=== PATIENT | male | born 1965 | race Caucasian/White ===

== ENCOUNTER 2020-07-29 14:05 | Inpatient (IN) | payer OTHER ==
[2020-07-29 17:50] VITALS: BMI 48.1
[2020-07-29] MEDS ORDERED: BISMUTH SUBSALICYLATE 524 MG/30 ML UD PO PRN (18:11)
[2020-07-29] MEDS ORDERED: chlordiazePOXIDE HCL 25 MG CAPSULE PO PRN (18:11)
[2020-07-29] MEDS ORDERED: METHOCARBAMOL 500 MG TABLET PO PRN (18:11)
[2020-07-29] MEDS ORDERED: ONDANSETRON *ODT* 4 MG TABLET SL PRN (18:11)
[2020-07-29] MEDS ORDERED: MAG HYDROX/AL HYDROX/SIMETH 30 ML UNIT-DOSE CUP PO PRN (18:11)
[2020-07-29] MEDS ORDERED: MENTHOL/PHENOL 1 EACH UD MM PRN (18:11)
[2020-07-29] MEDS ORDERED: MAGNESIUM CITRATE 300 ML BOTTLE PO PRN (18:11)
[2020-07-29] MEDS ORDERED: ACETAMINOPHEN 325 MG TABLET (FP) PO PRN ×2 (18:11)
[2020-07-29] MEDS ORDERED: MAGNESIUM HYDROX 2400MG/30ML ORAL SUSPENSION 30 ML CUP PO PRN (18:11)
[2020-07-29] MEDS: MELATONIN 5 MG TABLETS PO SCH (23:13)
[2020-07-29] MEDS: chlordiazePOXIDE HCL 25 MG CAPSULE PO SCH (23:13)
[2020-07-29] MEDS: THIAMINE HCL 100 MG TABLET (FP) PO SCH (23:13)
[2020-07-29] MEDS: hydrOXYzine PAMOATE 25 MG CAPSULE (FP) PO SCH (23:14)
[2020-07-30] MEDS: chlordiazePOXIDE HCL 25 MG CAPSULE PO SCH ×2 (05:32→10:39)
[2020-07-30] MEDS: hydrOXYzine PAMOATE 25 MG CAPSULE (FP) PO SCH ×5 (05:33→22:33)
[2020-07-30] MEDS: PRENATAL VITAMINS W/ FOLIC ACID TABLET (FP) PO SCH (10:39)
[2020-07-30 10:51] LABS: HEMATOCRIT 37.7 % (35.4-49); HEMOGLOBIN 12.6 GM/dL (11.7-16.9); MCH 29.8 pg (25.7-33.7); MCHC 33.6 g/dl (32.0-35.9); MEAN CELL VOLUME 88.8 fl (80-96); MEAN PLT VOLUME 7.9 fl (7.5-11.1); PLATELET COUNT 160 K/MM3 (134-434); RBC 4.24 M/mm3 (4.00-5.60); RDW 14.5 % (11.9-15.9); WHITE BLOOD COUNT 3.2 K/mm3 (4.0-10.0)
[2020-07-30 11:07] LABS: POTASSIUM 4.3 mmol/L (3.5-5.1)
[2020-07-30 11:09] LABS: ALBUMIN 3.2 g/dl (3.4-5.0); CALCIUM 8.8 mg/dL (8.5-10.1)
[2020-07-30 11:13] LABS: CREATININE 0.7 mg/dL (0.55-1.3)
[2020-07-30 11:14] LABS: BILIRUBIN,TOTAL 0.8 mg/dL (0.2-1); TOT PROT 6.8 g/dl (6.4-8.2)
[2020-07-30] MEDS ORDERED: LORazepam 1 MG TABLET PO PRN (12:33)
[2020-07-30] MEDS: LORazepam 2 MG TABLET PO SCH ×2 (18:15→22:33)
[2020-07-30] MEDS: THIAMINE HCL 100 MG TABLET (FP) PO SCH (22:33)
[2020-07-30] MEDS: MELATONIN 5 MG TABLETS PO SCH (22:33)
[2020-07-31] MEDS ORDERED: chlordiazePOXIDE HCL 25 MG CAPSULE PO SCH (05:00)
[2020-07-31] MEDS: hydrOXYzine PAMOATE 25 MG CAPSULE (FP) PO SCH ×5 (06:08→22:37)
[2020-07-31] MEDS: LORazepam 2 MG TABLET PO SCH ×4 (06:08→22:37)
[2020-07-31] MEDS: PRENATAL VITAMINS W/ FOLIC ACID TABLET (FP) PO SCH (10:14)
[2020-07-31] MEDS: THIAMINE HCL 100 MG TABLET (FP) PO SCH (22:37)
[2020-07-31] MEDS: MELATONIN 5 MG TABLETS PO SCH (22:37)
[2020-08-01] MEDS ORDERED: chlordiazePOXIDE HCL 10 MG CAPSULE PO PRN
[2020-08-01] MEDS ORDERED: chlordiazePOXIDE HCL 10 MG CAPSULE PO SCH (05:00)
[2020-08-01] MEDS: hydrOXYzine PAMOATE 25 MG CAPSULE (FP) PO SCH ×5 (06:15→22:09)
[2020-08-01] MEDS: LORazepam 1 MG TABLET PO SCH ×4 (06:17→22:10)
[2020-08-01 09:51] LABS: POTASSIUM 3.6 mmol/L (3.5-5.1)
[2020-08-01 09:55] LABS: ALBUMIN 2.9 g/dl (3.4-5.0); BLOOD UREA NITROGEN 12.6 mg/dL (7-18); CALCIUM 8.6 mg/dL (8.5-10.1)
[2020-08-01 09:58] LABS: CREATININE 0.8 mg/dL (0.55-1.3)
[2020-08-01 10:00] LABS: BILIRUBIN,TOTAL 0.8 mg/dL (0.2-1); TOT PROT 6.4 g/dl (6.4-8.2)
[2020-08-01] MEDS: PRENATAL VITAMINS W/ FOLIC ACID TABLET (FP) PO SCH (10:26)
[2020-08-01] MEDS: THIAMINE HCL 100 MG TABLET (FP) PO SCH (22:09)
[2020-08-01] MEDS: MELATONIN 5 MG TABLETS PO SCH (22:09)
[2020-08-02] MEDS ORDERED: LORazepam 0.5 MG TABLET PO PRN
[2020-08-02] MEDS ORDERED: chlordiazePOXIDE HCL 10 MG CAPSULE PO SCH (05:00)
[2020-08-02] MEDS: hydrOXYzine PAMOATE 25 MG CAPSULE (FP) PO SCH ×5 (06:06→22:30)
[2020-08-02] MEDS: LORazepam 0.5 MG TABLET PO SCH ×4 (06:06→22:30)
[2020-08-02] MEDS: PRENATAL VITAMINS W/ FOLIC ACID TABLET (FP) PO SCH (10:30)
[2020-08-02] MEDS: THIAMINE HCL 100 MG TABLET (FP) PO SCH (22:30)
[2020-08-02] MEDS: MELATONIN 5 MG TABLETS PO SCH (22:30)
[2020-08-02] MEDS: IBUPROFEN 400 MG TABLET (FP) PO PRN (22:31)
[2020-08-03] MEDS ORDERED: LORazepam 0.5 MG TABLET PO ONE (05:00)
[2020-08-03] MEDS ORDERED: chlordiazePOXIDE HCL 10 MG CAPSULE PO ONE (05:00)
[2020-08-03] MEDS: hydrOXYzine PAMOATE 25 MG CAPSULE (FP) PO SCH ×2 (06:13→10:12)
[2020-08-03] MEDS: IBUPROFEN 400 MG TABLET (FP) PO PRN (06:14)
[2020-08-03 06:37] VITALS: TEMP 96.9
[2020-08-03 09:32] VITALS: BP 131/72; PULSE 77
[2020-08-03] MEDS: PRENATAL VITAMINS W/ FOLIC ACID TABLET (FP) PO SCH (10:12)
== END 2020-08-03 12:31 | disposition other institution (70) | DRG 775 ==
LOC: YASAS 14:05 → Y6N 20:02
PROVIDERS: ADMIT Allergy & Immunology; ATTEND Allergy & Immunology
PROC: HZ2ZZZZ Detoxification Services for Substance Abuse Treatment (ICD-10-PCS; principal; 2020-07-29)
DX: F10.230 Alcohol dependence with withdrawal, uncomplicated (principal); M17.0 Bilateral primary osteoarthritis of knee; M19.072 Primary osteoarthritis, left ankle and foot; M19.071 Primary osteoarthritis, right ankle and foot; M10.9 Gout, unspecified; R94.5 Abnormal results of liver function studies; E66.01 Morbid (severe) obesity due to excess calories; Z68.42 Body mass index [BMI] 45.0-49.9, adult; Z98.84 Bariatric surgery status; Z99.89 Dependence on other enabling machines and devices
CPT/HCPCS: 36415; 80053; 85027; 86780; 93005; 93010; C9803; U0003

== ENCOUNTER 2020-08-03 12:40 | Inpatient (IN) | payer OTHER ==
[2020-08-03] MEDS ORDERED: LOPERAMIDE HCL 2 MG CAPSULE PO PRN (13:55)
[2020-08-03] MEDS ORDERED: MAGNESIUM CITRATE 300 ML BOTTLE PO PRN (13:55)
[2020-08-03] MEDS ORDERED: MAGNESIUM HYDROX 2400MG/30ML ORAL SUSPENSION 30 ML CUP PO PRN (13:55)
[2020-08-03] MEDS ORDERED: MENTHOL/PHENOL 1 EACH UD MM PRN (13:55)
[2020-08-03] MEDS ORDERED: guaiFENesin 200 MG/10 ML 10 ML UNIT-DOSE CUPS PO PRN (13:55)
[2020-08-03] MEDS ORDERED: P-EPHED 60MG/TRIPROLIDI 2.5MG TABLET PO PRN (13:55)
[2020-08-03] MEDS ORDERED: MAG HYDROX/AL HYDROX/SIMETH 30 ML UNIT-DOSE CUP PO PRN (13:55)
[2020-08-03] MEDS ORDERED: NICOTINE POLACRILEX 2 MG GUM BUC PRN (13:55)
[2020-08-03] MEDS: THIAMINE HCL 100 MG TABLET (FP) PO SCH (21:31)
[2020-08-03] MEDS: MELATONIN 5 MG TABLETS PO SCH (21:31)
[2020-08-03] MEDS: hydrOXYzine PAMOATE 25 MG CAPSULE (FP) PO PRN (21:31)
[2020-08-03] MEDS: IBUPROFEN 400 MG TABLET (FP) PO PRN (21:32)
[2020-08-04] MEDS: IBUPROFEN 400 MG TABLET (FP) PO PRN ×2 (06:22→21:12)
[2020-08-04] MEDS: PRENATAL VITAMINS W/ FOLIC ACID TABLET (FP) PO SCH (10:29)
[2020-08-04] MEDS: NICOTINE 7 MG/24 HOURS TOPICAL PATCH TD SCH (10:29)
[2020-08-04] MEDS: ACETAMINOPHEN 325 MG TABLET (FP) PO PRN (10:30)
[2020-08-04] MEDS: THIAMINE HCL 100 MG TABLET (FP) PO SCH (21:12)
[2020-08-04] MEDS: MELATONIN 5 MG TABLETS PO SCH (21:12)
[2020-08-05] MEDS: IBUPROFEN 400 MG TABLET (FP) PO PRN ×2 (06:59→21:13)
[2020-08-05] MEDS: PRENATAL VITAMINS W/ FOLIC ACID TABLET (FP) PO SCH (09:39)
[2020-08-05] MEDS: NICOTINE 7 MG/24 HOURS TOPICAL PATCH TD SCH (09:39)
[2020-08-05] MEDS: hydrOXYzine PAMOATE 25 MG CAPSULE (FP) PO PRN ×2 (09:39→21:13)
[2020-08-05] MEDS: ACETAMINOPHEN 325 MG TABLET (FP) PO PRN (09:40)
[2020-08-05] MEDS: MELATONIN 5 MG TABLETS PO SCH (21:13)
[2020-08-05] MEDS: THIAMINE HCL 100 MG TABLET (FP) PO SCH (21:13)
[2020-08-06] MEDS: IBUPROFEN 400 MG TABLET (FP) PO PRN ×2 (06:45→21:07)
[2020-08-06] MEDS: PRENATAL VITAMINS W/ FOLIC ACID TABLET (FP) PO SCH (09:26)
[2020-08-06] MEDS: ACETAMINOPHEN 325 MG TABLET (FP) PO PRN (09:27)
[2020-08-06] MEDS: hydrOXYzine PAMOATE 25 MG CAPSULE (FP) PO PRN ×2 (09:27→21:07)
[2020-08-06] MEDS: NICOTINE 7 MG/24 HOURS TOPICAL PATCH TD SCH (09:28)
[2020-08-06] MEDS: MELATONIN 5 MG TABLETS PO SCH (21:06)
[2020-08-06] MEDS: THIAMINE HCL 100 MG TABLET (FP) PO SCH (21:07)
[2020-08-07] MEDS: IBUPROFEN 400 MG TABLET (FP) PO PRN ×2 (06:08→21:21)
[2020-08-07] MEDS ORDERED: MASKS NR ONE (09:44)
[2020-08-07] MEDS: PRENATAL VITAMINS W/ FOLIC ACID TABLET (FP) PO SCH (10:33)
[2020-08-07] MEDS: NICOTINE 7 MG/24 HOURS TOPICAL PATCH TD SCH (10:33)
[2020-08-07] MEDS: ACETAMINOPHEN 325 MG TABLET (FP) PO PRN (10:34)
[2020-08-07] MEDS: THIAMINE HCL 100 MG TABLET (FP) PO SCH (21:18)
[2020-08-07] MEDS: MELATONIN 5 MG TABLETS PO SCH (21:19)
[2020-08-07] MEDS: hydrOXYzine PAMOATE 25 MG CAPSULE (FP) PO PRN (21:20)
[2020-08-08] MEDS: IBUPROFEN 400 MG TABLET (FP) PO PRN ×2 (06:20→21:45)
[2020-08-08] MEDS: NICOTINE 7 MG/24 HOURS TOPICAL PATCH TD SCH (10:04)
[2020-08-08] MEDS: ACETAMINOPHEN 325 MG TABLET (FP) PO PRN (10:12)
[2020-08-08] MEDS: PRENATAL VITAMINS W/ FOLIC ACID TABLET (FP) PO SCH (12:41)
[2020-08-08] MEDS: MELATONIN 5 MG TABLETS PO SCH (21:45)
[2020-08-08] MEDS: THIAMINE HCL 100 MG TABLET (FP) PO SCH (21:45)
[2020-08-09] MEDS: IBUPROFEN 400 MG TABLET (FP) PO PRN ×2 (06:38→21:36)
[2020-08-09] MEDS: PRENATAL VITAMINS W/ FOLIC ACID TABLET (FP) PO SCH (09:28)
[2020-08-09] MEDS: hydrOXYzine PAMOATE 25 MG CAPSULE (FP) PO PRN ×2 (09:28→21:35)
[2020-08-09] MEDS: ACETAMINOPHEN 325 MG TABLET (FP) PO PRN ×2 (09:28→18:12)
[2020-08-09] MEDS: NICOTINE 7 MG/24 HOURS TOPICAL PATCH TD SCH (09:29)
[2020-08-09] MEDS ORDERED: FUROSEMIDE 40 MG TABLET (FP) PO ONE (15:26)
[2020-08-09] MEDS: THIAMINE HCL 100 MG TABLET (FP) PO SCH (21:36)
[2020-08-09] MEDS: MELATONIN 5 MG TABLETS PO SCH (21:38)
[2020-08-10] MEDS: IBUPROFEN 400 MG TABLET (FP) PO PRN ×2 (07:29→14:47)
[2020-08-10] MEDS: NICOTINE 7 MG/24 HOURS TOPICAL PATCH TD SCH (09:26)
[2020-08-10] MEDS: ACETAMINOPHEN 325 MG TABLET (FP) PO PRN ×2 (09:26→21:11)
[2020-08-10] MEDS: PRENATAL VITAMINS W/ FOLIC ACID TABLET (FP) PO SCH (09:27)
[2020-08-10] MEDS: hydrOXYzine PAMOATE 25 MG CAPSULE (FP) PO PRN ×2 (09:27→21:10)
[2020-08-10] MEDS: FUROSEMIDE 40 MG TABLET (FP) PO SCH (09:54)
[2020-08-10] MEDS: THIAMINE HCL 100 MG TABLET (FP) PO SCH (21:10)
[2020-08-10] MEDS: MELATONIN 5 MG TABLETS PO SCH (21:10)
[2020-08-11] MEDS: IBUPROFEN 400 MG TABLET (FP) PO PRN ×2 (06:52→21:58)
[2020-08-11] MEDS: FUROSEMIDE 40 MG TABLET (FP) PO SCH (10:44)
[2020-08-11] MEDS: NICOTINE 7 MG/24 HOURS TOPICAL PATCH TD SCH (10:44)
[2020-08-11] MEDS: hydrOXYzine PAMOATE 25 MG CAPSULE (FP) PO PRN ×2 (10:44→21:58)
[2020-08-11] MEDS: PRENATAL VITAMINS W/ FOLIC ACID TABLET (FP) PO SCH (10:44)
[2020-08-11] MEDS: ACETAMINOPHEN 325 MG TABLET (FP) PO PRN ×2 (10:47→17:40)
[2020-08-11] MEDS: MELATONIN 5 MG TABLETS PO SCH (21:57)
[2020-08-11] MEDS: THIAMINE HCL 100 MG TABLET (FP) PO SCH (21:58)
[2020-08-11] MEDS: METHYL SALICYLATE/MENTHOL OINT 30 GM TUBE TP SCH (22:07)
[2020-08-12] MEDS: PRENATAL VITAMINS W/ FOLIC ACID TABLET (FP) PO SCH (09:28)
[2020-08-12] MEDS: hydrOXYzine PAMOATE 25 MG CAPSULE (FP) PO PRN ×2 (09:32→21:43)
[2020-08-12] MEDS: IBUPROFEN 400 MG TABLET (FP) PO PRN ×2 (09:32→21:43)
[2020-08-12] MEDS: NICOTINE 7 MG/24 HOURS TOPICAL PATCH TD SCH (09:33)
[2020-08-12] MEDS: METHYL SALICYLATE/MENTHOL OINT 30 GM TUBE TP SCH ×2 (09:33→21:46)
[2020-08-12] MEDS ORDERED: COLCHICINE 0.6 MG CAP PO ONE (11:14)
[2020-08-12] MEDS: ACETAMINOPHEN 325 MG TABLET (FP) PO PRN (16:12)
[2020-08-12 16:42] LABS: EPI CELLS 6 /uL (0-25.1); HYALINE CASTS 0 /uL (0-3.1); PH,URINE 6.5 (5.0-8.0); URINE APPEARANCE CLEAR; URINE BACTERIA 965 /uL (0-1359); URINE BILIRUBIN NEGATIVE (NEGATIVE); URINE COLOR YELLOW; URINE GLUCOSE (UA) NEGATIVE (NEGATIVE); URINE KETONE NEGATIVE (NEGATIVE); URINE LEUK ESTERASE NEGATIVE (NEGATIVE); URINE NITRITE NEGATIVE (NEGATIVE); URINE PROTEIN NEGATIVE (NEGATIVE); URINE RBC 34 /uL (0-23.9); URINE UROBILINOGEN 0.2 mg/dL (0.2-1.0); URINE WBC 3 /uL (0-25.8)
[2020-08-12] MEDS: THIAMINE HCL 100 MG TABLET (FP) PO SCH (21:43)
[2020-08-12] MEDS: MELATONIN 5 MG TABLETS PO SCH (21:44)
[2020-08-13] MEDS: IBUPROFEN 400 MG TABLET (FP) PO PRN ×2 (07:20→21:50)
[2020-08-13] MEDS: COLCHICINE 0.6 MG CAP PO SCH (10:58)
[2020-08-13] MEDS: NICOTINE 7 MG/24 HOURS TOPICAL PATCH TD SCH (10:59)
[2020-08-13] MEDS: PRENATAL VITAMINS W/ FOLIC ACID TABLET (FP) PO SCH (10:59)
[2020-08-13] MEDS: METHYL SALICYLATE/MENTHOL OINT 30 GM TUBE TP SCH ×2 (11:00→21:49)
[2020-08-13] MEDS: ACETAMINOPHEN 325 MG TABLET (FP) PO PRN (14:56)
[2020-08-13] MEDS: MELATONIN 5 MG TABLETS PO SCH (21:49)
[2020-08-13] MEDS: THIAMINE HCL 100 MG TABLET (FP) PO SCH (21:50)
[2020-08-14] MEDS: PRENATAL VITAMINS W/ FOLIC ACID TABLET (FP) PO SCH (10:40)
[2020-08-14] MEDS: IBUPROFEN 400 MG TABLET (FP) PO PRN ×3 (10:41→21:54)
[2020-08-14] MEDS: hydrOXYzine PAMOATE 25 MG CAPSULE (FP) PO PRN ×2 (10:41→21:53)
[2020-08-14] MEDS: NICOTINE 7 MG/24 HOURS TOPICAL PATCH TD SCH (10:42)
[2020-08-14] MEDS: COLCHICINE 0.6 MG CAP PO SCH (10:42)
[2020-08-14] MEDS: METHYL SALICYLATE/MENTHOL OINT 30 GM TUBE TP SCH ×2 (10:45→22:04)
[2020-08-14] MEDS: MELATONIN 5 MG TABLETS PO SCH (21:53)
[2020-08-14] MEDS: THIAMINE HCL 100 MG TABLET (FP) PO SCH (21:53)
[2020-08-15] MEDS: NICOTINE 7 MG/24 HOURS TOPICAL PATCH TD SCH (10:01)
[2020-08-15] MEDS: COLCHICINE 0.6 MG CAP PO SCH (10:01)
[2020-08-15] MEDS: METHYL SALICYLATE/MENTHOL OINT 30 GM TUBE TP SCH ×2 (10:01→21:45)
[2020-08-15] MEDS: PRENATAL VITAMINS W/ FOLIC ACID TABLET (FP) PO SCH (10:02)
[2020-08-15] MEDS: ACETAMINOPHEN 325 MG TABLET (FP) PO PRN ×2 (10:02→21:38)
[2020-08-15] MEDS: IBUPROFEN 400 MG TABLET (FP) PO PRN (17:18)
[2020-08-15] MEDS: hydrOXYzine PAMOATE 25 MG CAPSULE (FP) PO PRN (21:38)
[2020-08-15] MEDS: THIAMINE HCL 100 MG TABLET (FP) PO SCH (21:38)
[2020-08-15] MEDS: MELATONIN 5 MG TABLETS PO SCH (21:38)
[2020-08-16] MEDS: METHYL SALICYLATE/MENTHOL OINT 30 GM TUBE TP SCH ×2 (10:07→21:03)
[2020-08-16] MEDS: NICOTINE 7 MG/24 HOURS TOPICAL PATCH TD SCH (10:08)
[2020-08-16] MEDS: COLCHICINE 0.6 MG CAP PO SCH (10:08)
[2020-08-16] MEDS: PRENATAL VITAMINS W/ FOLIC ACID TABLET (FP) PO SCH (10:08)
[2020-08-16] MEDS: IBUPROFEN 400 MG TABLET (FP) PO PRN ×2 (10:09→21:04)
[2020-08-16] MEDS: THIAMINE HCL 100 MG TABLET (FP) PO SCH (21:03)
[2020-08-16] MEDS: hydrOXYzine PAMOATE 25 MG CAPSULE (FP) PO PRN (21:03)
[2020-08-16] MEDS: MELATONIN 5 MG TABLETS PO SCH (21:03)
[2020-08-17] MEDS: IBUPROFEN 400 MG TABLET (FP) PO PRN ×2 (10:17→21:43)
[2020-08-17] MEDS: PRENATAL VITAMINS W/ FOLIC ACID TABLET (FP) PO SCH (10:17)
[2020-08-17] MEDS: NICOTINE 7 MG/24 HOURS TOPICAL PATCH TD SCH (10:19)
[2020-08-17] MEDS: COLCHICINE 0.6 MG CAP PO SCH ×2 (10:20→21:43)
[2020-08-17] MEDS: METHYL SALICYLATE/MENTHOL OINT 30 GM TUBE TP SCH ×2 (10:21→21:43)
[2020-08-17] MEDS ORDERED: PT OWN MED DRAWER 7, Y5N ONE (20:06)
[2020-08-17] MEDS: THIAMINE HCL 100 MG TABLET (FP) PO SCH (21:43)
[2020-08-17] MEDS: hydrOXYzine PAMOATE 25 MG CAPSULE (FP) PO PRN (21:44)
[2020-08-17] MEDS: MELATONIN 5 MG TABLETS PO SCH (21:44)
[2020-08-18] MEDS: COLCHICINE 0.6 MG CAP PO SCH ×2 (10:32→21:19)
[2020-08-18] MEDS: IBUPROFEN 400 MG TABLET (FP) PO PRN ×2 (10:32→21:19)
[2020-08-18] MEDS: PRENATAL VITAMINS W/ FOLIC ACID TABLET (FP) PO SCH (10:32)
[2020-08-18] MEDS: hydrOXYzine PAMOATE 25 MG CAPSULE (FP) PO PRN (10:33)
[2020-08-18] MEDS: NICOTINE 7 MG/24 HOURS TOPICAL PATCH TD SCH (10:33)
[2020-08-18] MEDS: METHYL SALICYLATE/MENTHOL OINT 30 GM TUBE TP SCH ×2 (10:33→21:19)
[2020-08-18] MEDS ORDERED: PT OWN MED DRAWER 7, Y5N ONE (20:51)
[2020-08-18] MEDS: THIAMINE HCL 100 MG TABLET (FP) PO SCH (21:19)
[2020-08-18] MEDS: MELATONIN 5 MG TABLETS PO SCH (21:20)
[2020-08-19] MEDS: PRENATAL VITAMINS W/ FOLIC ACID TABLET (FP) PO SCH (10:46)
[2020-08-19] MEDS: hydrOXYzine PAMOATE 25 MG CAPSULE (FP) PO PRN ×2 (10:47→21:41)
[2020-08-19] MEDS: COLCHICINE 0.6 MG CAP PO SCH ×2 (10:47→21:43)
[2020-08-19] MEDS: IBUPROFEN 400 MG TABLET (FP) PO PRN ×2 (10:47→21:43)
[2020-08-19] MEDS: METHYL SALICYLATE/MENTHOL OINT 30 GM TUBE TP SCH ×2 (10:48→21:43)
[2020-08-19] MEDS: NICOTINE 7 MG/24 HOURS TOPICAL PATCH TD SCH (10:48)
[2020-08-19] MEDS: MELATONIN 5 MG TABLETS PO SCH (21:41)
[2020-08-19] MEDS: THIAMINE HCL 100 MG TABLET (FP) PO SCH (21:41)
[2020-08-20] MEDS: METHYL SALICYLATE/MENTHOL OINT 30 GM TUBE TP SCH ×2 (10:05→21:49)
[2020-08-20] MEDS: PRENATAL VITAMINS W/ FOLIC ACID TABLET (FP) PO SCH (10:05)
[2020-08-20] MEDS: NICOTINE 7 MG/24 HOURS TOPICAL PATCH TD SCH (10:05)
[2020-08-20] MEDS: COLCHICINE 0.6 MG CAP PO SCH ×2 (10:06→21:49)
[2020-08-20] MEDS: IBUPROFEN 400 MG TABLET (FP) PO PRN ×2 (10:06→21:49)
[2020-08-20] MEDS: THIAMINE HCL 100 MG TABLET (FP) PO SCH (21:49)
[2020-08-20] MEDS: hydrOXYzine PAMOATE 25 MG CAPSULE (FP) PO PRN (21:49)
[2020-08-20] MEDS: MELATONIN 5 MG TABLETS PO SCH (21:49)
[2020-08-21] MEDS: PRENATAL VITAMINS W/ FOLIC ACID TABLET (FP) PO SCH (09:58)
[2020-08-21] MEDS: hydrOXYzine PAMOATE 25 MG CAPSULE (FP) PO PRN ×2 (09:58→21:12)
[2020-08-21] MEDS: METHYL SALICYLATE/MENTHOL OINT 30 GM TUBE TP SCH ×2 (09:59→21:13)
[2020-08-21] MEDS: NICOTINE 7 MG/24 HOURS TOPICAL PATCH TD SCH (09:59)
[2020-08-21] MEDS: IBUPROFEN 400 MG TABLET (FP) PO PRN ×2 (10:00→21:12)
[2020-08-21] MEDS: MELATONIN 5 MG TABLETS PO SCH (21:13)
[2020-08-21] MEDS: COLCHICINE 0.6 MG TAB PO SCH (21:13)
[2020-08-21] MEDS: THIAMINE HCL 100 MG TABLET (FP) PO SCH (22:13)
[2020-08-22] MEDS: PRENATAL VITAMINS W/ FOLIC ACID TABLET (FP) PO SCH (09:55)
[2020-08-22] MEDS: hydrOXYzine PAMOATE 25 MG CAPSULE (FP) PO PRN ×2 (09:55→22:00)
[2020-08-22] MEDS: IBUPROFEN 400 MG TABLET (FP) PO PRN ×2 (09:55→22:00)
[2020-08-22] MEDS: COLCHICINE 0.6 MG TAB PO SCH ×2 (09:55→22:00)
[2020-08-22] MEDS: NICOTINE 7 MG/24 HOURS TOPICAL PATCH TD SCH (10:30)
[2020-08-22] MEDS: METHYL SALICYLATE/MENTHOL OINT 30 GM TUBE TP SCH ×2 (10:30→22:14)
[2020-08-22] MEDS: MELATONIN 5 MG TABLETS PO SCH (22:00)
[2020-08-22] MEDS: THIAMINE HCL 100 MG TABLET (FP) PO SCH (22:01)
[2020-08-23] MEDS: PRENATAL VITAMINS W/ FOLIC ACID TABLET (FP) PO SCH (10:10)
[2020-08-23] MEDS: hydrOXYzine PAMOATE 25 MG CAPSULE (FP) PO PRN ×2 (10:10→21:16)
[2020-08-23] MEDS: COLCHICINE 0.6 MG TAB PO SCH ×2 (10:11→21:16)
[2020-08-23] MEDS: IBUPROFEN 400 MG TABLET (FP) PO PRN ×2 (10:12→21:16)
[2020-08-23] MEDS: METHYL SALICYLATE/MENTHOL OINT 30 GM TUBE TP SCH ×2 (10:12→21:17)
[2020-08-23] MEDS: NICOTINE 7 MG/24 HOURS TOPICAL PATCH TD SCH (10:12)
[2020-08-23] MEDS: MELATONIN 5 MG TABLETS PO SCH (21:16)
[2020-08-23] MEDS: THIAMINE HCL 100 MG TABLET (FP) PO SCH (21:16)
[2020-08-24] MEDS: COLCHICINE 0.6 MG TAB PO SCH ×2 (09:58→22:01)
[2020-08-24] MEDS: hydrOXYzine PAMOATE 25 MG CAPSULE (FP) PO PRN ×2 (09:58→22:02)
[2020-08-24] MEDS: IBUPROFEN 400 MG TABLET (FP) PO PRN ×2 (09:58→22:01)
[2020-08-24] MEDS: PRENATAL VITAMINS W/ FOLIC ACID TABLET (FP) PO SCH (09:58)
[2020-08-24] MEDS: NICOTINE 7 MG/24 HOURS TOPICAL PATCH TD SCH (09:59)
[2020-08-24] MEDS: METHYL SALICYLATE/MENTHOL OINT 30 GM TUBE TP SCH ×2 (09:59→22:03)
[2020-08-24] MEDS: MELATONIN 5 MG TABLETS PO SCH (22:01)
[2020-08-24] MEDS: THIAMINE HCL 100 MG TABLET (FP) PO SCH (22:01)
[2020-08-25] MEDS: PRENATAL VITAMINS W/ FOLIC ACID TABLET (FP) PO SCH (10:13)
[2020-08-25] MEDS: IBUPROFEN 400 MG TABLET (FP) PO PRN ×2 (10:13→21:37)
[2020-08-25] MEDS: COLCHICINE 0.6 MG TAB PO SCH ×2 (10:13→21:38)
[2020-08-25] MEDS: hydrOXYzine PAMOATE 25 MG CAPSULE (FP) PO PRN ×2 (10:13→21:38)
[2020-08-25] MEDS: METHYL SALICYLATE/MENTHOL OINT 30 GM TUBE TP SCH ×2 (10:14→21:40)
[2020-08-25] MEDS: NICOTINE 7 MG/24 HOURS TOPICAL PATCH TD SCH (10:14)
[2020-08-25] MEDS ORDERED: PT OWN MED DRAWER 7, Y5N ONE (20:08)
[2020-08-25] MEDS: THIAMINE HCL 100 MG TABLET (FP) PO SCH (21:37)
[2020-08-25] MEDS: MELATONIN 5 MG TABLETS PO SCH (21:38)
[2020-08-26] MEDS ORDERED: PT OWN MED DRAWER 7, Y5N ONE ×2 (09:10→20:09)
[2020-08-26] MEDS: COLCHICINE 0.6 MG TAB PO SCH ×2 (10:04→21:29)
[2020-08-26] MEDS: METHYL SALICYLATE/MENTHOL OINT 30 GM TUBE TP SCH ×2 (10:04→21:42)
[2020-08-26] MEDS: PRENATAL VITAMINS W/ FOLIC ACID TABLET (FP) PO SCH (10:04)
[2020-08-26] MEDS: hydrOXYzine PAMOATE 25 MG CAPSULE (FP) PO PRN ×2 (10:04→21:31)
[2020-08-26] MEDS: NICOTINE 7 MG/24 HOURS TOPICAL PATCH TD SCH (10:04)
[2020-08-26] MEDS: IBUPROFEN 400 MG TABLET (FP) PO PRN ×2 (10:04→21:29)
[2020-08-26] MEDS: MELATONIN 5 MG TABLETS PO SCH (21:30)
[2020-08-26] MEDS: THIAMINE HCL 100 MG TABLET (FP) PO SCH (21:40)
[2020-08-27] MEDS: PRENATAL VITAMINS W/ FOLIC ACID TABLET (FP) PO SCH (09:56)
[2020-08-27] MEDS: METHYL SALICYLATE/MENTHOL OINT 30 GM TUBE TP SCH ×2 (09:56→21:47)
[2020-08-27] MEDS: NICOTINE 7 MG/24 HOURS TOPICAL PATCH TD SCH (09:56)
[2020-08-27] MEDS: IBUPROFEN 400 MG TABLET (FP) PO PRN ×2 (09:58→21:23)
[2020-08-27] MEDS: hydrOXYzine PAMOATE 25 MG CAPSULE (FP) PO PRN (09:58)
[2020-08-27] MEDS: COLCHICINE 0.6 MG TAB PO SCH ×2 (09:59→21:23)
[2020-08-27] MEDS ORDERED: PT OWN MED DRAWER 7, Y5N ONE (19:54)
[2020-08-27] MEDS: MELATONIN 5 MG TABLETS PO SCH (21:23)
[2020-08-27] MEDS: THIAMINE HCL 100 MG TABLET (FP) PO SCH (21:24)
[2020-08-28] MEDS: IBUPROFEN 400 MG TABLET (FP) PO PRN ×2 (09:57→21:45)
[2020-08-28] MEDS: hydrOXYzine PAMOATE 25 MG CAPSULE (FP) PO PRN ×2 (09:57→21:44)
[2020-08-28] MEDS: PRENATAL VITAMINS W/ FOLIC ACID TABLET (FP) PO SCH (09:57)
[2020-08-28] MEDS: COLCHICINE 0.6 MG TAB PO SCH ×2 (09:57→21:44)
[2020-08-28] MEDS: METHYL SALICYLATE/MENTHOL OINT 30 GM TUBE TP SCH ×2 (09:59→21:45)
[2020-08-28] MEDS: NICOTINE 7 MG/24 HOURS TOPICAL PATCH TD SCH (09:59)
[2020-08-28] MEDS: MELATONIN 5 MG TABLETS PO SCH (21:44)
[2020-08-28] MEDS: THIAMINE HCL 100 MG TABLET (FP) PO SCH (21:44)
[2020-08-29] MEDS: COLCHICINE 0.6 MG TAB PO SCH ×2 (09:57→22:16)
[2020-08-29] MEDS: PRENATAL VITAMINS W/ FOLIC ACID TABLET (FP) PO SCH (09:57)
[2020-08-29] MEDS: NICOTINE 7 MG/24 HOURS TOPICAL PATCH TD SCH (09:57)
[2020-08-29] MEDS: hydrOXYzine PAMOATE 25 MG CAPSULE (FP) PO PRN ×2 (09:58→22:16)
[2020-08-29] MEDS: METHYL SALICYLATE/MENTHOL OINT 30 GM TUBE TP SCH ×2 (09:58→22:17)
[2020-08-29] MEDS: IBUPROFEN 400 MG TABLET (FP) PO PRN (09:58)
[2020-08-29] MEDS: ACETAMINOPHEN 325 MG TABLET (FP) PO PRN (19:34)
[2020-08-29] MEDS: THIAMINE HCL 100 MG TABLET (FP) PO SCH (22:16)
[2020-08-29] MEDS: MELATONIN 5 MG TABLETS PO SCH (22:16)
[2020-08-30 00:55] LABS: EPI CELLS 3 /uL (0-25.1); HYALINE CASTS 4 /uL (0-3.1); URINE APPEARANCE CLEAR; URINE BACTERIA 8082 /uL (0-1359); URINE BILIRUBIN NEGATIVE (NEGATIVE); URINE COLOR YELLOW; URINE GLUCOSE (UA) NEGATIVE (NEGATIVE); URINE KETONE NEGATIVE (NEGATIVE); URINE LEUK ESTERASE 3+ (NEGATIVE); URINE NITRITE NEGATIVE (NEGATIVE); URINE PROTEIN NEGATIVE (NEGATIVE); URINE RBC 7 /uL (0-23.9); URINE UROBILINOGEN 0.2 mg/dL (0.2-1.0); URINE WBC 290 /uL (0-25.8)
[2020-08-30] MEDS ORDERED: SULFAMETHOXAZOLE/TRIMETHOPRIM 800MG/160MG D.S. TABLET PO ONE (10:30)
[2020-08-30] MEDS: IBUPROFEN 400 MG TABLET (FP) PO PRN ×2 (11:02→21:56)
[2020-08-30] MEDS: NICOTINE 7 MG/24 HOURS TOPICAL PATCH TD SCH (11:03)
[2020-08-30] MEDS: METHYL SALICYLATE/MENTHOL OINT 30 GM TUBE TP SCH ×2 (11:03→22:34)
[2020-08-30] MEDS: PRENATAL VITAMINS W/ FOLIC ACID TABLET (FP) PO SCH (11:03)
[2020-08-30] MEDS: COLCHICINE 0.6 MG TAB PO SCH ×2 (11:04→21:57)
[2020-08-30] MEDS: hydrOXYzine PAMOATE 25 MG CAPSULE (FP) PO PRN ×2 (11:04→21:57)
[2020-08-30] MEDS ORDERED: PT OWN MED DRAWER 7, Y5N ONE (20:34)
[2020-08-30] MEDS: THIAMINE HCL 100 MG TABLET (FP) PO SCH (21:56)
[2020-08-30] MEDS: MELATONIN 5 MG TABLETS PO SCH (21:56)
[2020-08-30] MEDS ORDERED: SULFAMETHOXAZOLE/TRIMETHOPRIM 800MG/160MG D.S. TABLET PO SCH (22:00)
[2020-08-31] MEDS: METHYL SALICYLATE/MENTHOL OINT 30 GM TUBE TP SCH ×2 (10:20→21:24)
[2020-08-31] MEDS: PRENATAL VITAMINS W/ FOLIC ACID TABLET (FP) PO SCH (10:20)
[2020-08-31] MEDS: COLCHICINE 0.6 MG TAB PO SCH ×2 (10:20→21:23)
[2020-08-31] MEDS: NICOTINE 7 MG/24 HOURS TOPICAL PATCH TD SCH (10:20)
[2020-08-31] MEDS ORDERED: PT OWN MED DRAWER 7, Y5N ONE (11:30)
[2020-08-31] MEDS: NITROFURANTOIN MACROCRYSTAL 50 MG CAPSULE (FP) PO SCH ×2 (11:48→17:49)
[2020-08-31] MEDS: IBUPROFEN 400 MG TABLET (FP) PO PRN ×2 (15:40→21:23)
[2020-08-31] MEDS: hydrOXYzine PAMOATE 25 MG CAPSULE (FP) PO PRN (21:23)
[2020-08-31] MEDS: THIAMINE HCL 100 MG TABLET (FP) PO SCH (21:23)
[2020-08-31] MEDS: MELATONIN 5 MG TABLETS PO SCH (21:23)
[2020-09-01] MEDS: NITROFURANTOIN MACROCRYSTAL 50 MG CAPSULE (FP) PO SCH ×2 (01:26→07:48)
[2020-09-01] MEDS: PRENATAL VITAMINS W/ FOLIC ACID TABLET (FP) PO SCH (09:12)
[2020-09-01] MEDS: NICOTINE 7 MG/24 HOURS TOPICAL PATCH TD SCH (09:12)
[2020-09-01] MEDS: COLCHICINE 0.6 MG TAB PO SCH (09:12)
[2020-09-01] MEDS: METHYL SALICYLATE/MENTHOL OINT 30 GM TUBE TP SCH (09:12)
[2020-09-01] MEDS: hydrOXYzine PAMOATE 25 MG CAPSULE (FP) PO PRN (09:13)
[2020-09-01 11:32] VITALS: BP 115/69; PULSE 84; TEMP 99.6
== END 2020-09-01 10:15 | disposition home or self-care (01) | DRG 772 ==
LOC: YASAS 12:40 → Y5N 12:41
PROVIDERS: ADMIT Allergy & Immunology; ATTEND Allergy & Immunology
PROC: HZ42ZZZ Group Counseling for Substance Abuse Treatment, Cognitive-Behavioral (ICD-10-PCS; principal; 2020-08-03)
DX: F10.20 Alcohol dependence, uncomplicated (principal); M17.0 Bilateral primary osteoarthritis of knee; M19.071 Primary osteoarthritis, right ankle and foot; M19.072 Primary osteoarthritis, left ankle and foot; M10.9 Gout, unspecified; E66.01 Morbid (severe) obesity due to excess calories; Z68.42 Body mass index [BMI] 45.0-49.9, adult; R31.9 Hematuria, unspecified; R50.9 Fever, unspecified
CPT/HCPCS: 81003; 87077; 87086; 87186; C9803; U0003